=== PATIENT | female | born 1980 | race African-American/Black ===

== ENCOUNTER 2021-01-31 09:03 | Emergency (ER) | payer SELFPAY ==
[2021-01-31] MEDS ORDERED: Iopamidol-370 76% 500 ML 1 ML ONE (09:49)
[2021-01-31 10:07] LABS: #Basophils 0.1 thou/uL (0.0-0.2); #Eosinphils 0.1 thou/uL (0.0-0.7); #Lymphocytes 3.5 thou/uL (1.20-3.40); #Monocytes 0.8 thou/uL (0.11-0.59); #Neutrophils 7.6 thou/uL (1.40-6.50); %Basophils 0.4 % (0.0-1.0); %Eosinophils 0.4 % (0.0-10.0); %Lymphocytes 29.2 % (21.0-51.0); %Monocytes 6.4 % (0.0-10.0); %Neutrophils 63.6 % (42.0-75.0); Hemoglobin 11.7 g/dL (12.0-16.0); Mean Corpuscular HGB CONC 31.2 g/dL (32.0-36.0); Mean Corpuscular Hemoglobin 27.2 pg (27.0-31.0); Mean Corpuscular Volume 87.3 fL (78.0-98.0); Mean Platelet Volume 7.6 fL (7.4-10.4); Platelet Count 302 thou/uL (130-400); RBC Distribution Width 10.6 % (11.5-14.5); White Blood Cell (WBC) Count 11.9 thou/uL (4.8-10.8)
[2021-01-31] MEDS ORDERED: HYDROmorphone 0.5 MG/0.5 ML SYRINGE ONE (10:14)
[2021-01-31 10:21] LABS: ALT (SGPT) 10 U/L (8-55); AST (SGOT) 17 U/L (5-34); Albumin 3.9 g/dL (3.5-5.0); Alkaline Phosphatase 84 U/L (40-110); Anion Gap 12 mmol/L (10-20); BUN (Urea Nitrogen) 10 mg/dL (7.0-18.7); Bilirubin, Total 0.7 mg/dL (0.2-1.2); Calc. Creatinine Clearance 0 mL/min (70-130); Calcium 8.5 mg/dL (7.8-10.44); Carbon Dioxide 22 mmol/L (22-29); Chloride 108 mmol/L (98-107); Globulin 2.8 g/dL (2.4-3.5); Glucose 83 mg/dL (70-105); Protein, Total 6.7 g/dL (6.0-8.3); Sodium 138 mmol/L (136-145)
[2021-01-31 11:11] LABS: Bilirubin Negative (Negative); Blood, Urine 2+ (Negative); Clarity Clear (Clear); Glucose, Urine (Dipstick) Normal (Negative); Ketone, Urine Negative (Negative); Leukocyte 500 Leu/uL (Negative); Nitrite Negative (Negative); Protein, Urine (Dipstick) Negative (Neg-Trace); Urobilinogen Normal mg/dL (Less than 2); pH, Urine 6.5 (5.0-9.0)
[2021-01-31 11:18] LABS: Bacteria/HPF 1+ HPF (None Seen)
[2021-01-31 11:29] LABS: SARS-CoV-2 NAA Rapid Test Not Detected (NotDetected)
[2021-01-31] MEDS ORDERED: Iothalamate Meglumine 60% 30 ML VIAL FS ONE (13:33)
[2021-01-31] MEDS ORDERED: Fentanyl 100 MCG/2 ML VIAL ONE ×2 (13:35→15:31)
[2021-01-31] MEDS ORDERED: Famotidine/PF 20 mg/2ml Vial ONE (13:35)
[2021-01-31] MEDS ORDERED: Promethazine HCl 25 MG/ML VIAL ONE (13:35)
[2021-01-31] MEDS ORDERED: Morphine 4 MG/ML VIAL ONE (13:39)
[2021-01-31] MEDS ORDERED: Ondansetron PF 4 MG/2 ML Vial ONE (13:55)
[2021-01-31] MEDS ORDERED: PROPOFOL 200 MG/20 ML VIAL ONE (13:55)
[2021-01-31] MEDS ORDERED: Dexamethasone 20 MG/5 ML VIAL ONE (13:55)
[2021-01-31] MEDS ORDERED: Lidocaine 1% PF 5 ML VIAL ONE (13:55)
[2021-01-31] MEDS ORDERED: Ketorolac Tromethamine 30 MG/ML VIAL ONE (13:55)
[2021-01-31] MEDS ORDERED: B & O ONE (14:48)
[2021-01-31] MEDS ORDERED: cefTRIAXone\\ROCEPHIN 1 GM in Sodium Chloride 0.9% 100 ML IVPB SCH (15:00)
[2021-01-31] MEDS ORDERED: Phenazopyridine HCl 100 MG TAB ONE (15:32)
[2021-01-31] MEDS ORDERED: HYDROcodone/Acetaminophen 5/325 mg Tablet ONE (16:15)
== END 2021-01-31 13:38 | disposition admitted as inpatient to this hospital (09) ==
LOC: EDBD 09:03 → ERS 09:03
DX: N13.2 Hydronephrosis with renal and ureteral calculous obstruction (principal); I10 Essential (primary) hypertension; Z20.2 Contact with and (suspected) exposure to infections with a predominantly sexual mode of transmission; F17.290 Nicotine dependence, other tobacco product, uncomplicated; Z79.899 Other long term (current) drug therapy
CPT/HCPCS: 36415; 74178; 74420; 80053; 81003; 81015; 82365; 85025; 88300; 93005; 96374; J0696; J1100; J1170; J1885; J2270; J2405; J2550; J2704; J3010; J3490; Q9967; S0028; U0002; U0005